=== PATIENT | male | born 1980 | race Caucasian/White ===

== ENCOUNTER 2016-12-30 20:35 | Emergency (ER) | payer SELFPAY ==
[~2016-12-30] VITALS: Ht 167.6 cm; Wt 75.5 kg
[2016-12-30 20:37] VITALS: Ht 167.6 cm; Wt 75.5 kg
[2016-12-30] MEDS ORDERED: FAMO-96 PO (21:56)
[2016-12-30] MEDS ORDERED: AMOX500C2 PO (21:56)
[2016-12-30] MEDS ORDERED: ACET500C5 PO (21:56)
--- NOTE | 2016-12-30 22:00 | ERD ---
ER Documentation Chief Complaint Date/Time DATE: 12/30/16 TIME: 21:59 Chief Complaint c/o sore throat x 1 week. HPI This 36-year-old male complains of sore throat for last week. May have a tactile fevers. He is no chest pain or shortness of breath. Patient gives a history of epigastric pain as well. Denies lower abdominal pain, vomiting or diarrhea or neck stiffness or rashes. ROS All systems reviewed and are negative except as per history of present illness. Medications Home Meds Active Scripts Famotidine* (Pepcid*) 20 Mg Tablet, 20 MG PO BID for 14 Days, #30 TAB Prov:CHRIS MC MD 12/30/16 Acetaminophen* (Tylophen*) 500 Mg Capsule, 1 CAP PO Q6H Y for PAIN AND OR ELEVATED TEMP, #15 CAP Prov:CHRIS MC MD 12/30/16 Amoxicillin* (Amoxicillin*) 500 Mg Cap, 500 MG PO TID for 10 Days, CAP Prov:CHRIS MC MD 12/30/16 Physical Exam Vitals Vital Signs Date Time Temp Pulse Resp B/P Pulse Ox O2 Delivery O2 Flow Rate FiO2 12/30/16 20:37 98.7 80 18 154/90 98 Physical Exam Const: [], [id number]-[id number]-[id number] Head: Atraumatic Eyes: Normal Conjunctiva ENT: Normal External Ears, Nose and Mouth. Some redness in the posterior oropharynx. Uvula is midline and no evidence of abscess. Airways patent. Neck: Full range of motion..~ No meningismus. Resp: Clear to auscultation bilaterally Cardio: Regular rate and rhythm, no murmurs Abd: Soft, non tender, non distended. Normal bowel sounds Skin: No petechiae or rashes Back: No midline or flank tenderness Ext: No cyanosis, or edema Neur: Awake and alert Psych: Normal Mood and Affect Procedures/MDM Presents with sore throat for the last week. Given patient request patient was treated with amoxicillin and Tylenol. Patient is advised he may have symptoms of GERD treatment does not improve his symptoms. He is advised to follow-up with primary doctor and was referred to local community health clinics but she does return to the ER for new or worsening symptoms. No evidence of abscess, airway obstruction, cute abdomen, sepsis or additional emergent causes of presenting complaints. The patient was stable with no new complaints during the ER course. Clinically, there is no current evidence to suggest meningitis, sepsis, acute abdomen, pneumonia, acute coronary syndrome, pulmonary embolism, or any other emergent condition appearing to require further evaluation or hospitalization. The patient should certainly return for any new or worsening symptoms per the aftercare instructions. They should otherwise follow-up with her primary care doctor for reevaluation this week. Disclaimer: Inadvertent spelling and grammatical errors are likely due to EHR/dictation software use and do not reflect on the overall quality of patient care. Also, please note that the electronic time recorded on this note does not necessarily reflect the actual time of the patient encounter. Departure Diagnosis: Primary Impression: Sore throat Condition: Stable Patient Instructions: Self-Care for Sore Throats, Gerd (Adult) Referrals[facility] Usted se anthony hecho un examen mdico de control que le indica que no est en taryn condicin que requiera tratamiento urgente en el Departamento de Emergencia. Un estudio ms profundo y el tratamiento de montes condicin pueden esperar sin ningn riesgo hasta que usted sea atendida/o en el consultorio de montes mdico o taryn cl martha. Es responsabilidad suya arreglar taryn kait para el seguimiento del kisha. MANEJO DE CONDICIONES NO URGENTES EN EL FUTURO 1) Si usted tiene un mdico de atencin primaria: Usted debera llamar a montes mdico de atencin primaria antes de venir al departamento de emergencia. Despus de las horas de consultorio, montes doctor o montes asociado/a est disponible por telfono. El mdico o enfermero de sera en el servicio telefnico puede asesorarle por maría medio para atender el problema, o kisha contrario se puede programar taryn kait. 2) Si usted no tiene un mdico de atencin primaria: Llame al mdico o clnica de referencia que aparece abajo perlita las horas de consultorio para hacer tayrn kait para que le vean. CLINICAS: [facility] [id number] [facility] [phone] [id number] [facility] [[email or web address]] [phone] [facility] [phone] [id number] [place] [phone] [place] [phone] Additional Instructions: VAMOS A TRATAR PARA INFECCION, HELENE POSIBLEMENTE DE ESTOMAGO. Examines normal hoy. Cheque otro vez con montes doctor primario en el proximo liu or regresa para mas o nueva simptomas. CHRIS MC MD Dec 30, 2016 22:00
== END 2016-12-30 22:11 | disposition home or self-care (01) ==
LOC: FTE 20:35
DX: J02.9 Acute pharyngitis, unspecified (principal)
CPT/HCPCS: 99283

== ENCOUNTER 2017-11-14 13:38 | Observation (INO) | END 2017-11-15 11:41 | disposition home or self-care (01) ==